=== PATIENT | male | born 1995 | race Caucasian/White ===

== ENCOUNTER 2017-02-02 13:00 | Inpatient (IN) | payer BC ==
--- NOTE | ~2017-02-02 | DS ---
Unit #: [id number] #: [id number] Patient: JAYLEN KIM [id number] [facility] [address] [place] [address] [id number] MR#: [id number] NAME: JAYLEN KIM ROOM: [facility] Age: 21 Sex: M Admission Date: 02/02/2017 : 1995 Discharge Date: 02/03/2017 Attending Physician: Aamir Calloway M.D. Primary Care Physician: Primary Care Physician No DISCHARGE SUMMARY REASON FOR ADMISSION Jaylen is a 21-year-old man with a history of bipolar disorder and attention deficit disorder, who reports increasing stress in his personal life, especially in the work place. He made suicidal statements and was admitted for evaluation. LABORATORY DATA Please see hospital chart. HOSPITAL COURSE The patient was admitted and placed on suicide precautions. His home medications were continued unchanged. On the morning of my initial assessment, the patient stated that he disliked the inpatient milieu and had "just wanted a referral to outpatient care." He adamantly denied suicidal ideation, intent, or plan, and after he was able to give what was considered a reliable contract for safety, he was discharged in good condition. DISCHARGE DIAGNOSES AXIS I: Bipolar depressed, adjustment disorder with depressed mood, and attention deficit disorder. AXIS II: No diagnosis. AXIS III: None acute. AXIS IV: AXIS V: DISCHARGE INSTRUCTIONS Follow up with [facility] for psychotherapy and medication management. DISCHARGE MEDICATIONS Wellbutrin SR 150 mg b.i.d. for depression, lamotrigine 25 mg b.i.d. for mood stability, Adderall 20 mg b.i.d. for ADD, and vitamin D 50,000 units every week for vitamin D supplementation. CONDITION AT DISCHARGE Improved. PROGNOSIS Good. DIET AND ACTIVITY Unit #: [id number] #: [id number] Patient: JAYLEN KIM Per primary care doctor. Dictated by... Aamir Calloway M.D. [facility]/raquel TD: 04/08/2017 15:11 JOB #: [id number] DISCHARGE SUMMARY Page 1 of 1 X Aamir Calloway MD X DISCHARGE SUMMARY
--- NOTE | ~2017-02-02 | PA ---
Unit #: [id number] #: [id number] Patient: JAYLEN KIM [id number] [place] [address] [id number] MR#: [id number] NAME: JAYLEN KIM ROOM: [facility] Age: 21 Sex: M Admission Date: 02/02/2017 : 1995 Date of Assessment: 02/03/2017 Attending Physician: Aamir Calloway M.D. Admitting Physician: Aamir Calloway M.D. Primary Care Physician: Primary Care Physician No PSYCHIATRIC ASSESSMENT DATE OF SERVICE 02/03/2017. INFORMANTS The patient, reliable; the patient's family, reliable; and OLOP, reliable. CHIEF COMPLAINT "A lot going on." HISTORY OF PRESENT ILLNESS Jaylen Kim is a 21-year-old man, who reported that he is having increasing trouble at work and in his relationship. He felt he is being discriminated at his job and claims that he has made overdoses recently, but did not seek treatment. He also has a history of self-mutilating behaviors. He says that he is "always" suicidal and says "it literally never goes away." He was admitted for psychiatric assessment. PAST PSYCHIATRIC HISTORY One previous treatment at the [facility] in 2006. He is currently taking Adderall, lamotrigine, and Wellbutrin. FAMILY PSYCHIATRIC HISTORY There is significant family history of mental illness, although the exact diagnoses are unspecified. SOCIAL HISTORY The patient denies a history of childhood abuse or neglect. He is a single homosexual man, who has an active partner. He is a high school graduate with some college, who is having increasing trouble in his work place. PAST MEDICAL HISTORY No chronic medical problems. MEDICATIONS None except as noted above. ALLERGIES No known medication allergies. SUBSTANCE USE HISTORY The patient reports a history of experimentation and drinks every other day with an increase in recent alcohol use. He blames this on his Unit #: [id number] #: [id number] Patient: JAYLEN KIM depression. MENTAL STATUS EXAMINATION The patient presented as a mildly disheveled man, who appeared his stated age. He was cooperative with the examination. His speech was spontaneous and easily understood. His musculoskeletal examination was calm. His mood was moderately to mildly depressed with a congruent affect. He was alert and fully oriented. His memory and concentration were intact. His thought processes were logical with no active psychosis. He now denied suicidal ideation, intent, or plan. Insight and judgment were fair. Fund of knowledge and abstraction were fair. ASSETS AND LIABILITIES The patient knows local resources and presents voluntarily for treatment. Liabilities include recent work place and social stress. ADMITTING DIAGNOSES AXIS I: Bipolar depressed, history of attention deficit hyperactivity disorder, and adjustment disorder with depression. AXIS II: No diagnosis. AXIS III: None acute. AXIS IV: AXIS V: PSYCHIATRIC PLAN The patient was admitted overnight and placed on suicide precautions. His home medications were continued. On the date of my assessment, he denied further suicidal ideation, intent, or plan and stated that he felt uncomfortable and unsafe in the inpatient setting. He requested referral to a therapist and psychiatrist, and this was completed after he was able to give what was considered a reliable contract for safety. Dictated by... Tanya Fernandez/raquel TD: 04/08/2017 15:06 JOB #: [id number] PSYCHIATRIC ASSESSMENT Page 1 of 1 X Aamir Calloway MD X PSYCHIATRIC ASSESSMENT
--- NOTE | ~2017-02-02 | HP ---
Unit #: [id number] #: [id number] Patient: JAYLEN KIM [id number] [place] [address] [id number] MR#: [id number] NAME: JAYLEN KIM ROOM: [facility] Age: 21 Sex: M Admission Date: 02/02/2017 : 1995 Attending Physician: Aamir Calloway M.D. Admitting Physician: Aamir Calloway M.D. Primary Care Physician: Primary Care Physician No HISTORY AND PHYSICAL NOTE Jaylen is a 21 year old who was admitted and discharged within the first 24 hours. He was not seen for an H & P. Dictated by... Rut Paredes P.A.-C. for Tanya Bright/[place] TD: 02/03/2017 23:54 JOB #: [id number] HISTORY AND PHYSICAL Page 1 of 1 X Rut Paredes X HISTORY AND PHYSICAL
[~2017-02-02 13:00] MED LIST: AUGMENTIN PO
[2017-02-03 09:48] LABS: BASOPHIL% 0.3 % (0-2.5); EOSINOPHIL# 0.2 X10e3 (0-0.7); EOSINOPHIL% 2.2 % (0.0-7.0); HEMOGLOBIN 14.5 gm/dL (13.0-16.0); LYMPHOCYTE# 3.7 X10e3 (1.0-3.5); LYMPHOCYTE% 48.4 % (17.0-45.0); MEAN CELL VOLUME 81.8 FL (83-96); MEAN CORPUSCULAR HEMOGLOBIN 26.3 PG (28-34); MEAN CORPUSCULAR HGB CONC 32.2 g/dL (30-36); MEAN PLATELET VOLUME 7.5 FL (6.5-11.5); MONOCYTE# 0.6 X10e3 (0-1.0); MONOCYTE% 7.6 % (3.0-12.0); NEUTROPHIL# 3.1 X10e3 (1.5-7.1); NEUTROPHIL% 41.5 % (40-75); PLATELET COUNT 312 X10e3 (140-420); RED CELL DISTRIBUTION WIDTH 13.4 % (11.0-15.5); WHITE BLOOD COUNT 7.6 X10e3 (4.0-10.5)
[2017-02-03 09:59] LABS: DIFF IND NO
[2017-02-03 10:01] LABS: ALBUMIN SERUM 4.3 g/dL (3.5-5.0); BILIRUBIN,TOTAL 0.4 mg/dL (0.2-2.0); CALCIUM SERUM 9.5 mg/dL (8.4-10.2); GLOM FILT RATE Estimated 105.6 mL/min (>60); POTASSIUM 4.6 mmol/L (3.5-5.1); PROTEIN TOTAL SERUM 6.7 g/dL (6.0-8.3)
[2017-02-04 11:13] LABS: AMPHETAMINE POS (NEG); BARBITURATES NEG (NEG); BENZODIAZEPINES NEG (NEG); COCAINE NEG (NEG); MARIJUANA NEG (NEG); OPIATES NEG (NEG); TRICYCLIC ANTIDEPRESSANTS NEG (NEG); U METHADONE NEG (NEG)
== END 2017-02-03 13:40 | disposition home or self-care (01) | DRG 881 ==
LOC: P1E 15:14
PROVIDERS: Psychiatry & Neurology Psychiatry
DX: F43.21 Adjustment disorder with depressed mood (principal)
CPT/HCPCS: 80053; 80307; 85025